=== PATIENT | female | born 1960 | race Caucasian/White ===

== ENCOUNTER → 2018-07-23 | Outpatient (CLI) | payer OTHER ==
[~2018-07-23] VITALS: Ht 177.8 cm; Wt 95.3 kg
[~2018-07-23] MED LIST: KEFLEX250 MG PO; TRICOR145 MG PO
--- NOTE | ~2018-07-23 | PATH ---
[facility] [address] [place] [address] PATHOLOGY RPT PROCEDURE Name: JEFFGLADYS CHERELLE Room #: REG [facility] Jarod.#: [id number] Admission: 07/23/18 Date of : 62 Discharge: Report #: [id number] Path Case #: [id number] [facility] Accession Number: [id number] . 01 Material submitted: . ASCENDING COLON POLYP . 01 Clinical history: . Pre-OP DX: Screening Post-OP DX: Colon polyp . 02 Diagnosis: Colonic mucosa "ascending colon polyp biopsy": - Fragments of hyperplastic polyps. - There is no evidence of adenomatous change, high-grade dysplasia or malignancy. (SHA:suzy; 07/24/2018) QMS/07/24/2018 . 02 Electronically signed: . Perfecto Cruz MD, Pathologist NPI- [id number] . 01 Gross description: . Received in formalin labeled "Gladys Aguilar, ascending colon polyp," is a 1.0 x 0.5 x 0.4 cm polypoid piece of nunez soft tissue. The margin is inked and the specimen is sectioned perpendicular to the margin and entirely submitted in cassette A1. Additionally received in the same container are multiple segments of nunez soft tissue measuring 0.7 x 0.4 x 0.2 cm in aggregate dimensions. The specimen is filtered and entirely submitted in cassette A2. (TSD; 07/23/2018) TOB/TOB . 02 Pathologist provided ICD-10: K63.5 . 02 CPT . 621314 Specimen Comment: A courtesy copy of this report has been sent to Specimen Comment: [phone], . Specimen Comment: Report sent to / DR GARCIA Specimen Comment: A duplicate report has been generated due to demographic updates. Performed at: [address], [place], [place] [id number] [address] [place] [address] PATHOLOGY RPT PROCEDURE Name: [facility] Room #: REG MARCOS Moreno#: [id number] Admission: 07/23/18 Date of : 62 Discharge: Report #: [id number] Path Case #: [id number] MD Mario Fisher MD Phone: [phone] Performed at: [address] [place], [place] [id number] MD Julia Wesley MD Phone: [phone]
== END | disposition home or self-care (01) ==
LOC: GI 11:25
DX: Z12.11 Encounter for screening for malignant neoplasm of colon (principal); K63.5 Polyp of colon; E78.00 Pure hypercholesterolemia, unspecified; F17.210 Nicotine dependence, cigarettes, uncomplicated; Z90.49 Acquired absence of other specified parts of digestive tract; Z98.890 Other specified postprocedural states; Z88.0 Allergy status to penicillin; Z79.899 Other long term (current) drug therapy
CPT/HCPCS: 62110; 62900

== ENCOUNTER → 2020-01-08 | Outpatient (CLI) | payer OTHER | LOC: ULTRA 10:47 | DX: E04.1 Nontoxic single thyroid nodule (principal); E03.9 Hypothyroidism, unspecified ==

== ENCOUNTER → 2020-04-28 | Outpatient (CLI) | payer OTHER | LOC: NUC 06:53 | PROVIDERS: ATTEND Internal Medicine | DX: E05.90 Thyrotoxicosis, unspecified without thyrotoxic crisis or storm (principal); E04.1 Nontoxic single thyroid nodule ==